=== PATIENT | male | born 1965 | race African-American/Black ===

== ENCOUNTER 2016-05-19 20:25 | Inpatient (IN) | payer OTHER ==
--- NOTE | ~2016-05-19 | DS ---
Discharge Summary [facility] [address] [facility] [place]. [address] NAME: STEVENSON MOTLEY : 61 STATUS : ADM IN PAT#: [id number] AGE: 50 ADM/REG DATE : 05/19/16 MR#: [id number] REPORT SERV DATE: 05/27/16 DICTATED BY: KARINA AFRIA DATE: 05/27/16 REPORT STATUS : Draft TRANSCRIBED BY: MODL DATE: 05/27/16 ADMISSION DATE: 05/19/2016 DISCHARGE DATE: 05/27/2016 FINAL HOSPITAL DIAGNOSES: 1. Cellulitis. 2. Chronic wounds, cerebral palsy, and urinary hesitancy. PROCEDURES: Listed as previous interim summary. CONSULTATIONS: Infectious Disease. CURRENT PHYSICAL FINDINGS AND HPI: Please see previous H and P by Dr. Gaspar on date of admission as well as interim summary by Dr. Sinha on 05/26/2016. I assumed the patient's care on 05/27/2016 and will dictate from that point. The patient briefly was admitted with chronic lower extremity wounds and cerebral palsy and had several courses of antibiotics here. When he was failing to improve, Infectious Disease was consulted as well as Wound Care here. He has been evaluated by Infectious Disease today and felt clear for discharge on p.o. antibiotics. He already has aid in assistance. We will arrange home care and he has a followup appointment previously scheduled with his health management consultant and his strategy specialist tomorrow. We will ask that he follow up with his PCP for post hospital followup in seven to ten days. DISCHARGE MEDICATIONS: Will use Venelex ointment apply b.i.d., Duricef 1000 b.i.d. for an additional three days, Bactrim DS b.i.d. for an additional three days. He will resume his Colace 100 daily p.r.n., his baclofen 20 daily p.r.n. muscle spasm and Zestril 25 b.i.d. He is to return for any failure to improve or worsening clinical status. TLF/ALICIA Karina Faria M.D. / [id number] CC: MD Sachi Herndon
--- NOTE | ~2016-05-19 | IDS ---
Interim Discharge Summary [facility] [address] [place]. [address] NAME: STEVENSON MOTLEY : 61 STATUS : ADM IN PAT#: [id number] AGE: 50 ADM/REG DATE : 05/19/16 MR#: [id number] REPORT SERV DATE: 05/26/16 DICTATED BY: CHAD SINHA DATE: 05/26/16 REPORT STATUS : Draft TRANSCRIBED BY: MODL DATE: 05/26/16 ADMISSION DATE: 05/19/2016 DISCHARGE DATE: Date of interim summary covers up to 05/26/2016. CHIEF COMPLAINT ON ADMISSION: Lower leg infection. CURRENT HOSPITAL DIAGNOSES: 1. Cerebral palsy with lower extremity atrophy and chronic wounds. 2. Chronic wounds with colonization of polymicrobial organisms. 3. Possible bilateral lower extremity superimposed cellulitis. 4. Urinary hesitancy. HISTORY OF PRESENT ILLNESS: Please see full H and P by Dr. Gaspar for details regarding initial presentation. HOSPITAL COURSE: 1. Chronic lower extremity wounds with lower extremity atrophy, possible superimposed cellulitis. The patient was admitted to the hospital. Initially, he did not have much erythema on my exam. He was started on IV antibiotics for noted purulence on admission. He was initially on vancomycin. He was then switched to Ancef; however, cultures then came back with polymicrobial organisms including MRSA, Enterococcus E coli, and Acinetobacter. He was changed to Levaquin and Bactrim to cover all of these organisms; however; erythema had recurrent and persisted. Given lack of improvement, unclear if infection active versus colonization, infectious Disease has been consulted. At this time, they have changed him to Duricef with Bactrim and wished to monitor him one more day. Anticipate discharge probably tomorrow to resume home care and then follow up with outpatient [facility] where he has been seen before. He has not had a fever since. He has not had a leukocytosis, so unclear if this is an active infection. Infectious Disease agrees with this. However, wished to monitor. 2. Possible severe eczema versus psoriasis. The patient has an appointment with his ingredient handler coming up soon. Recommend to keep this appointment. NILES/ALICIA Chad Sinha MD / [id number] CC: MD ARNULFO Herndon [employer] DENISE
--- NOTE | ~2016-05-19 | CN ---
Consultation Report [facility] [address] [place]. [address] NAME: STEVENSON MOTLEY : 61 STATUS : ADM IN PAT#: [id number] AGE: 50 ADM/REG DATE : 05/19/16 MR#: [id number] REPORT SERV DATE: 05/26/16 DICTATED BY: ISAIAH CHICAS DATE: 05/26/16 REPORT STATUS : Draft TRANSCRIBED BY: MODL DATE: 05/26/16 INFECTIOUS DISEASE CONSULTATION DATE OF CONSULTATION: 05/26/2016 REASON FOR CONSULTATION: Cellulitis. HISTORY OF PRESENT ILLNESS: This is a 50-year-old man, known to me from consultation back in 09/2014 who has a history of cerebral palsy and is wheelchair bound. He has functional paraplegia and has a history of chronic lower extremity edema along with MRSA prepatellar bursitis in 2014. He has been followed at [facility] for some time along with home health. Unna boot therapy was started a few months ago. He was sent though to the Emergency Department here at [facility] on the evening of 05/19 when his home health care nurse felt he had some purulent drainage from between his toes, apparently in the left foot and some evidence of infection. On initial evaluation, he had a normal white blood cell count. He was afebrile, and he denies any outpatient fevers or chills. The initial history and physical though does not describe any purulent drainage and just some mild erythema. The patient was started initially on vancomycin to which Ancef was added. When cultures returned showing a variety of ria, antibiotics were changed on 05/22 to Levaquin and Septra. Dr. Sinha says that over the past 48 hours or so, he has had some increased erythema and warmth of his lower legs and feet. Despite this, he has had no fever, and his white blood cell count remains normal. He denies any significant pain. He denies any diarrhea. PAST MEDICAL HISTORY: As outlined above. In addition, he is followed by a zinc plater at [place], Dr. Garner, and states that he has developed some new skin problems on his thighs, trunk, and arms. ALLERGIES: AUGMENTIN WHICH CAUSES DIARRHEA NOT A TRUE ALLERGY. PRESENT MEDICATIONS: In addition to the antibiotics include just topical Kenalog and Venelex on his lower legs underneath the Unna boot. He is on other p.r.n. medications. 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 Nonsmoker, nondrinker. Lives alone. Has home health nursing in the morning and in the evening. FAMILY HISTORY: Notable for diabetes. REVIEW OF SYSTEMS: No nausea, vomiting, diarrhea, chest pain, shortness of breath. PHYSICAL EXAMINATION: VITAL SIGNS: The patient weighs 102 kg. He is afebrile. Blood pressure 123/67, pulse of Consultation Report [place] [place] [id number] [place]. [address] NAME: STEVENSON MOTLEY : 61 STATUS : ADM IN PAT#: [id number] AGE: 50 ADM/REG DATE : 05/19/16 MR#: [id number] REPORT SERV DATE: 05/26/16 DICTATED BY: ISAIAH CHICAS DATE: 05/26/16 REPORT STATUS : Draft TRANSCRIBED BY: MODLester DATE: 05/26/16 83, respiratory rate 14. GENERAL: He is alert, no distress. HEAD AND NECK: Unremarkable. LUNGS: Clear to auscultation. CARDIAC: Regular rate and rhythm without murmur, gallop, or rub. ABDOMEN: Soft and nontender. EXTREMITIES: Unna boots are removed. He has chronic appearing skin changes of his lower legs from knees to the feet. This includes broad plaque-like areas of thickening of his skin particularly near his knees. There is some mild erythema and warmth of his lower legs and feet which is pretty symmetric bilaterally. I do not see any drainage between his toes or any open wounds otherwise. The patient also has other skin lesions especially on his thighs, arms, including his elbows, in his periumbilical area of plaques that are very psoriasiform in appearance. I did not examine his back. LABORATORY STUDIES: White blood cell count 7.9, hemoglobin 12, platelets 291. Creatinine 0.83. Alkaline phosphatase 155. Other liver function tests normal. Admission blood cultures negative. Wound cultures obtained on admission from both feet have grown a variety of organisms including MRSA, E. coli, Acinetobacter, and Enterococcus. Sensitivities are reviewed. IMPRESSION: I am not convinced that the patient has significant active infection/cellulitis. Certainly, it is hard to assess given all the chronic changes. However, the fact that he has not had any fevers or chills and his white blood cell count is normal suggests that he probably does not have a significant infection. On the other hand, according to Dr. Sinha, he has had some increase in his warmth and erythema over the past couple of days. The wound cultures are hard to interpret as I think the results mainly reflect colonization and I think it is unlikely that he has a gram-negative skin infection. Certainly, the fact that he has MRSA now and in the past supports covering for that pathogen if we do treat him for cellulitis. PLAN: I will change Levaquin to cefadroxil and continue the Septra and reassess in the morning with anticipate discharge tomorrow morning if he is tolerating these oral antibiotics. He will have followup at [facility] and with Dermatology. I do think he may have psoriasis. STORM/ALICIA Isaiah Chicas M.D. / [id number] CC: Consultation Report [address] [place]. [address] NAME: STEVENSON MOTLEY : 61 STATUS : ADM IN [facility]#: [id number] AGE: 50 ADM/REG DATE : 05/19/16 MR#: [id number] REPORT SERV DATE: 05/26/16 DICTATED BY: ISAIAH CHICAS DATE: 05/26/16 REPORT STATUS : Draft TRANSCRIBED BY: ALICIA DATE: 05/26/16 MD DALE Herndon
--- NOTE | ~2016-05-19 | HP ---
History And Physical [facility] [address] [facility] [place]. [address] NAME: STEVENSON TURPIN : 61 STATUS : ADM Jenelle PAT#: [id number] AGE: 50 ADM/REG DATE : 05/19/16 MR#: [id number] REPORT SERV DATE: 05/20/16 DICTATED BY: COLTON CAN DATE: 05/19/16 REPORT STATUS : Draft TRANSCRIBED BY: MODLester DATE: 05/19/16 DATE OF ADMISSION: 05/19/2016 POINT OF ENTRY: [facility] Emergency Department. CHIEF COMPLAINT: Lower leg infection. HISTORY OF PRESENT ILLNESS: Mr. Turpin is a 50-year-old gentleman with history of cerebral palsy with functional paraplegia, who is currently wheelchair-bound. He presents to the emergency department today at the instruction of his Wound Care [facility] for concern for lower extremity infection. The patient has a history of cerebral palsy as well as functional paraplegia, essentially wheelchair-bound. He has had troubles with chronic lower extremity wounds in the past including admission in 2014 at [facility], for what ended up being a prepatellar bursitis that grew out MRSA. The patient states that he has been seeing [facility] for the past three months for topical wound care as well as Unna boots. He denies any recent antibiotics for his lower extremities. He denies any recent fevers, but was instructed by the staff at [facility] [place] to present to the emergency department, they were concerned that he had a lower extremity skin infection. The patient states that he no longer crawls on his arms and legs. He is strictly wheel- chair bound. The patient does endorse some possible superficial trauma to the lower extremities, as he admits to me that he has not been the most careful with his lower extremities after being placed in his Unna boots. Initial evaluation in the emergency department, his vital signs are stable. White count was within normal limits. The patient was subsequently admitted to the Hospitalist Service after being placed on IV vancomycin. Blood cultures and wound cultures have been obtained. Comprehensive system is otherwise negative unless listed in the history of present illness. The patient specifically denies any fevers, night sweats, chills, cough, sputum production, shortness of breath, chest pain, abdominal pain, nausea, vomiting, diarrhea, constipation, dysuria, melena, or hematochezia. PREVIOUS MEDICAL HISTORY: 1. Cerebral palsy. 2. Functional paraplegia, wheelchair bound. 3. Chronic anemia. 4. Generalized weakness. 5. Prior history of prepatellar bursitis growing MRSA. 6. Chronic lower extremity wounds. SURGICAL HISTORY: None. ALLERGIES: AUGMENTIN. History And Physical [place] [address] [place]. [address] NAME: STEVENSON TURPIN : 61 STATUS : ADM Jenelle PAT#: [id number] AGE: 50 ADM/REG DATE : 05/19/16 MR#: [id number] REPORT SERV DATE: 05/20/16 DICTATED BY: COLTON CAN DATE: 05/19/16 REPORT STATUS : Draft TRANSCRIBED BY: ALICIA DATE: 05/19/16 HOME MEDICATIONS: 1. Docusate 100 mg daily p.r.n. 2. Baclofen 1 tab b.i.d. p.r.n. 3. Anti-itch medicine b.i.d. p.r.n. SOCIAL HISTORY: He denies any tobacco, alcohol, or illicits. FAMILY MEDICAL HISTORY: Family history noted for diabetes and coronary artery disease. LABS AND IMAGIN. White count 9.0, hemoglobin 12.8, hematocrit 39.5, and platelet count 292. 2. Sodium is 142, potassium 3.7, chloride 107, carbon dioxide 27, BUN 18, creatinine 0.83, glucose is 104, calcium is 8.6, protein is 8.0, albumin is 3.2, bilirubin is 0.4, ALT is 21, AST 14, and alkaline phosphatase is 155. 3. Lactic acid is 1.7. 4. Chest x-ray per my review shows no acute cardiopulmonary abnormality. PHYSICAL EXAMINATION: VITAL SIGNS: Temperature is 98.4 degrees Fahrenheit, pulse is 85, respirations 18, saturating 100% on room air, blood pressure 183/103, on recheck is now 160/99. GENERAL: The patient is awake, alert, in no acute distress. Resting comfortably. He is a well-developed and well-nourished male. HEENT: Atraumatic and normocephalic. Moist mucous membranes. Pupils are equal, round, reactive to light and accommodation. Extraocular eye movements intact. No scleral icterus. NECK: No jugular venous distention. No carotid bruits. CARDIAC: Regular rate and rhythm. No murmurs or gallops. Normal S1. Normal S2. LUNGS: Clear to auscultation bilaterally. No wheezes, rhonchi, or crackles. ABDOMEN: Soft, nontender, and nondistended with good bowel sounds. No rebound, guarding, or rigidity. EXTREMITIES: The patient's bilateral lower extremities are cachectic and wasted. He has evidence of chronic lower extremity wounds with generalized thickening of the skin as well as some erythema, but no appreciable purulent drainage. There is extensive scaling of skin on the bilateral lower extremities. PSYCH: Affect appropriate. NEURO: Alert and oriented x3. Cranial nerves II through XII are grossly intact. Speech is normal. Gait not assessed. ASSESSMENT AND PLAN: Mr. Turpin is a 50-year-old gentleman with history of cerebral palsy with a functional paraplegia who presents at the instruction of his Wound Care Clinic for concern for lower extremity infection. PROBLEM LIST: 1. Lower extremity cellulitis. 2. Cerebral palsy with functional paraplegia. 3. Prior history of MRSA skin infection. History And Physical [address] [address] NAME: STEVENSON TURPIN : 61 STATUS : ADM Jenelle PAT#: [id number] AGE: 50 ADM/REG DATE : 05/19/16 MR#: [id number] REPORT SERV DATE: 05/20/16 DICTATED BY: COLTON CAN DATE: 05/19/16 REPORT STATUS : Draft TRANSCRIBED BY: ALICIA DATE: 05/19/16 PLAN: 1. Lower extremity cellulitis. We will admit the patient to Hospitalist Service. Place the patient on IV vancomycin given his prior history of MRSA skin infection. Followup blood as well as wound cultures. Checking ESR as well as CRP, but there does not appear to be any evidence of ulceration visible to the naked eye suggestive of a deeper infection. We will ask Wound Care for assistance for topical care of his chronic lower extremity wounds. 2. DVT prophylaxis. Lovenox subcu. CODE STATUS: The patient wished to be full code. BROOKE/ALICIA Colton Can MD / [id number] CC: Pedro Lee AUTUM[employer] DENISE
[~2016-05-19 20:25] MED LIST: AUG500; DIL2TAB; HYDROCODONE PO; MORPHINE PO
[2016-05-19] MEDS ORDERED: DSS PO (20:28)
[2016-05-19] MEDS ORDERED: BACLOFEN20 MG PO (20:28)
[2016-05-19] MEDS ORDERED: VIST25 PO (20:29)
[2016-05-19 20:52] LABS: BASOPHILS 0.3 %; BASOPHILS ABSOLUTE 0.03 10/3/uL (0.0-0.16); EOSINOPHILS ABSOLUTE 0.36 10/3/uL (0.0-0.53); ER CBC TAT 0 Hrs 14 Mins; HEMATOCRIT 39.5 % (40.0-51.0); HEMOGLOBIN 12.8 g/dL (13.6-17.8); IMMATURE GRANULOCYTES 0.2 %; IMMATURE GRANULOCYTES ABSOLUTE 0.02 10/3/uL (0.0-0.11); LYMPHOCYTES 23.1 %; LYMPHOCYTES ABSOLUTE 2.09 10/3/uL (0.67-4.30); MEAN CORPUS HGB CONC 32.4 g/dL (32.0-36.0); MEAN CORPUSCULAR HEMOGLOB 25.8 pg (26.0-34.0); MEAN CORPUSCULAR VOLUME 79.6 fL (80-100); MEAN PLATELET VOLUME 9.6 fL (9.2-13.0); MONOCYTES 8.3 %; MONOCYTES ABSOLUTE 0.75 10/3/uL (0.21-1.20); NEUTROPHILS 64.1 %; NEUTROPHILS ABSOLUTE 5.79 10/3/uL (2.02-8.40); PLATELET COUNT 292 10/3/uL (150-400); RBC DISTRIBUTION WIDTH 16.6 % (12.0-16.0); RED CELL COUNT 4.96 10/6/uL (4.7-6.1)
[2016-05-19 20:53] LABS: MANUAL DIFF NO %
[2016-05-19 21:04] LABS: A/G RATIO 0.7 (0.7-1.9); ALBUMIN 3.2 G/DL (3.5-5.0); BUN (BLOOD UREA NITROGEN) 18 MG/DL (6-23); CALCIUM, SERUM 8.6 MG/DL (8.5-10.4); CHLORIDE, SERUM 107 MMOL/L (96-112); CO2 (CARBON DIOXIDE) 27 MMOL/L (24-34); CREATININE 0.83 MG/DL (0.70-1.30); GFR AFRICAN AMERICAN 117 ML/MIN (>=60); GFR NON AFRICAN AMERICAN 101 ML/MIN (>=60); GLOBULIN 4.8 G/DL (2.5-4.1); GLUCOSE, SERUM 104 MG/DL (60-99); POTASSIUM, SERUM 3.7 MMOL/L (3.5-5.3); SGOT(AST) 14 U/L (5-40); SGPT(ALT) 21 U/L (5-65); SODIUM, SERUM 142 MMOL/L (135-148); TOTAL BILIRUBIN 0.4 MG/DL (0-1.2)
[2016-05-19 21:05] LABS: ALKALINE PHOSPHATASE 155 U/L (45-117)
[2016-05-20 06:36] LABS: HEMATOCRIT 35.6 % (40.0-51.0); HEMOGLOBIN 11.7 g/dL (13.6-17.8); MEAN CORPUS HGB CONC 32.9 g/dL (32.0-36.0); MEAN CORPUSCULAR VOLUME 79.1 fL (80-100); MEAN PLATELET VOLUME 9.8 fL (9.2-13.0); PLATELET COUNT 293 10/3/uL (150-400); RBC DISTRIBUTION WIDTH 16.3 % (12.0-16.0)
[2016-05-20 06:41] LABS: MANUAL DIFF YES %
[2016-05-20 06:52] LABS: BUN (BLOOD UREA NITROGEN) 19 MG/DL (6-23); C-REACTIVE PROTEIN 44.1 MG/L (<8.0); CALCIUM, SERUM 8.2 MG/DL (8.5-10.4); CHLORIDE, SERUM 113 MMOL/L (96-112); CO2 (CARBON DIOXIDE) 26 MMOL/L (24-34); CREATININE 0.84 MG/DL (0.70-1.30); GFR AFRICAN AMERICAN 117 ML/MIN (>=60); GFR NON AFRICAN AMERICAN 101 ML/MIN (>=60); GLUCOSE, SERUM 102 MG/DL (60-99); POTASSIUM, SERUM 4.3 MMOL/L (3.5-5.3); SODIUM, SERUM 147 MMOL/L (135-148)
[2016-05-20 06:58] LABS: EOSINOPHILS 2 %; EOSINOPHILS ABSOLUTE (CALC) 0.14 10/3/uL (0.0-0.53); LYMPHOCYTES 26 %; LYMPHOCYTES ABSOLUTE (CALC) 1.82 10/3/uL (0.67-4.30); MONOCYTES 6 %; MONOCYTES ABSOLUTE (CALC) 0.42 10/3/uL (0.21-1.20); NEUTROPHILS ABSOLUTE (CALC) 4.62 10/3/uL (2.02-8.40); PLATELET ESTIMATE ADQ (ADEQUATE); RBC MORPHOLOGY NORM (NORMAL); SEGMENTED NEUTROPHIL (0) 66 %; TOTAL NUCLEATED CELLS 100
[2016-05-22 06:38] LABS: BASOPHILS 0.2 %; BASOPHILS ABSOLUTE 0.02 10/3/uL (0.0-0.16); EOSINOPHILS ABSOLUTE 0.32 10/3/uL (0.0-0.53); HEMATOCRIT 37.9 % (40.0-51.0); HEMOGLOBIN 12.5 g/dL (13.6-17.8); IMMATURE GRANULOCYTES 0.5 %; IMMATURE GRANULOCYTES ABSOLUTE 0.04 10/3/uL (0.0-0.11); LYMPHOCYTES 26.6 %; LYMPHOCYTES ABSOLUTE 2.13 10/3/uL (0.67-4.30); MEAN CORPUSCULAR HEMOGLOB 25.8 pg (26.0-34.0); MEAN CORPUSCULAR VOLUME 78.1 fL (80-100); MEAN PLATELET VOLUME 9.8 fL (9.2-13.0); MONOCYTES 7.5 %; NEUTROPHILS 61.2 %; PLATELET COUNT 323 10/3/uL (150-400); RED CELL COUNT 4.85 10/6/uL (4.7-6.1)
[2016-05-22 06:42] LABS: MANUAL DIFF NO %
[2016-05-24 05:30] LABS: CALCIUM, SERUM 8.6 MG/DL (8.5-10.4); CHLORIDE, SERUM 106 MMOL/L (96-112); CO2 (CARBON DIOXIDE) 25 MMOL/L (24-34); CREATININE 1.23 MG/DL (0.70-1.30); GFR AFRICAN AMERICAN 78 ML/MIN (>=60); GFR NON AFRICAN AMERICAN 67 ML/MIN (>=60); GLUCOSE, SERUM 105 MG/DL (60-99)
[2016-05-24 05:36] LABS: BUN (BLOOD UREA NITROGEN) 24 MG/DL (6-23); SODIUM, SERUM 140 MMOL/L (135-148)
[2016-05-25 05:07] LABS: HEMATOCRIT 36.9 % (40.0-51.0); MEAN CORPUS HGB CONC 32.5 g/dL (32.0-36.0); MEAN CORPUSCULAR HEMOGLOB 25.3 pg (26.0-34.0); MEAN CORPUSCULAR VOLUME 77.8 fL (80-100); MEAN PLATELET VOLUME 9.8 fL (9.2-13.0); PLATELET COUNT 291 10/3/uL (150-400); RBC DISTRIBUTION WIDTH 16.6 % (12.0-16.0); RED CELL COUNT 4.74 10/6/uL (4.7-6.1); WHITE BLOOD CELLS 7.9 10/3/uL (4.5-10.5)
[2016-05-25 05:08] LABS: MANUAL DIFF YES %
[2016-05-25 05:19] LABS: CHLORIDE, SERUM 109 MMOL/L (96-112); CO2 (CARBON DIOXIDE) 22 MMOL/L (24-34); CREATININE 0.83 MG/DL (0.70-1.30); GFR AFRICAN AMERICAN 117 ML/MIN (>=60); GFR NON AFRICAN AMERICAN 101 ML/MIN (>=60); GLUCOSE, SERUM 100 MG/DL (60-99); POTASSIUM, SERUM 4.4 MMOL/L (3.5-5.3); SODIUM, SERUM 142 MMOL/L (135-148)
[2016-05-25 05:20] LABS: BUN (BLOOD UREA NITROGEN) 17 MG/DL (6-23)
[2016-05-25 05:58] LABS: BAND NEUTROPHILS 1 %; EOSINOPHILS 4 %; EOSINOPHILS ABSOLUTE (CALC) 0.32 10/3/uL (0.0-0.53); LYMPHOCYTES 16 %; LYMPHOCYTES ABSOLUTE (CALC) 1.26 10/3/uL (0.67-4.30); MONOCYTES 8 %; MONOCYTES ABSOLUTE (CALC) 0.63 10/3/uL (0.21-1.20); NEUTROPHILS ABSOLUTE (CALC) 5.69 10/3/uL (2.02-8.40); PLATELET ESTIMATE ADQ (ADEQUATE); RBC MORPHOLOGY NORM (NORMAL); REACTIVE LYMPHS OCC (0-2%) (0-5%); SEGMENTED NEUTROPHIL (0) 71 %; TOTAL NUCLEATED CELLS 100
[2016-05-26 03:39] LABS: ASCORBIC ACID (UR NOT ORDER) NEG (NEG); BILIRUBIN, URINE NEGATIVE (NEG); KETONE, URINE NEGATIVE (NEG); LEUKOCYTE ESTERASE(NOT OR NEG (NEG); WBC (NOT ORDERED) (RFLEX) < 1 (0-5)
[2016-05-26 07:58] LABS: CREATININE, URINE 44.8 MG/DL
[2016-05-27 05:42] LABS: BUN (BLOOD UREA NITROGEN) 17 MG/DL (6-23); CALCIUM, SERUM 8.3 MG/DL (8.5-10.4); CHLORIDE, SERUM 105 MMOL/L (96-112); CO2 (CARBON DIOXIDE) 24 MMOL/L (24-34); CREATININE 0.92 MG/DL (0.70-1.30); GFR AFRICAN AMERICAN 110 ML/MIN (>=60); GFR NON AFRICAN AMERICAN 95 ML/MIN (>=60); GLUCOSE, SERUM 89 MG/DL (60-99); POTASSIUM, SERUM 4.3 MMOL/L (3.5-5.3); SODIUM, SERUM 141 MMOL/L (135-148)
[2016-05-27] MEDS ORDERED: CEFADROXIL1 GM PO (12:20)
[2016-05-27] MEDS ORDERED: SEPTRA DS1 TAB PO (12:20)
[2016-05-27] MEDS ORDERED: CASTOR T (12:22)
[2016-05-27] MEDS ORDERED: BALSAM PERU T (12:22)
== END 2016-05-27 15:32 | disposition home health service (06) | DRG 603 ==
LOC: ER 20:25 → 4SO 22:29
PROVIDERS: Hospitalist; Internal Medicine; Nurse Practitioner Acute Care
DX: L03.116 Cellulitis of left lower limb (principal); N17.9 Acute kidney failure, unspecified; B95.2 Enterococcus as the cause of diseases classified elsewhere; B96.89 Other specified bacterial agents as the cause of diseases classified elsewhere; D64.9 Anemia, unspecified; L03.115 Cellulitis of right lower limb; G80.8 Other cerebral palsy; Z86.14 Personal history of Methicillin resistant Staphylococcus aureus infection; Z99.3 Dependence on wheelchair; Z88.1 Allergy status to other antibiotic agents; L40.8 Other psoriasis; Z22.322 Carrier or suspected carrier of Methicillin resistant Staphylococcus aureus; R39.11 Hesitancy of micturition; B96.20 Unspecified Escherichia coli [E. coli] as the cause of diseases classified elsewhere; L30.9 Dermatitis, unspecified; M62.562 Muscle wasting and atrophy, not elsewhere classified, left lower leg; M62.561 Muscle wasting and atrophy, not elsewhere classified, right lower leg
CPT/HCPCS: 71010; 80048; 80053; 81001; 82570; 83605; 83735; 84300; 85025; 85652; 86140; 87040; 87070; 87077; 87186; 87205; 96374; 99285; A9270-GY; J0690; J3370